=== PATIENT | male | born 1960 | race Caucasian/White ===

== ENCOUNTER 2018-03-24 07:44 | Day surgery (SDC) | payer OTHER ==
[2018-03-17 10:04] LABS: HEMATOCRIT 40.7 % (37.9-51.0); HEMOGLOBIN 14.2 g/dL (13.5-17.0); MEAN CORPUSCULAR HEMOGLOBIN 31.7 pg (27.0-33.4); MEAN CORPUSCULAR VOLUME 91 fl (80-97); PLATELET COUNT 264 10^3/uL (150-450); RED BLOOD COUNT 4.48 10^6/uL (4.35-5.55); RED CELL DISTRIBUTION WIDTH 12.1 % (11.5-14.0); WHITE BLOOD COUNT 6.1 10^3/uL (4.0-10.5)
[2018-03-17 10:28] LABS: ANION GAP 8 (5-19); BLOOD UREA NITROGEN 17 mg/dL (7-20); CALCIUM 9.6 mg/dL (8.4-10.2); CARBON DIOXIDE 29 mmol/L (22-30); CHLORIDE 104 mmol/L (98-107); GLUCOSE 116 mg/dL (75-110); POTASSIUM 5.2 mmol/L (3.6-5.0); SODIUM 141.3 mmol/L (137-145)
--- NOTE | 2018-03-17 20:20 | EKG REPORT ---
SEVERITY:- NORMAL ECG - SINUS RHYTHM : Confirmed by: Linda Whaley 17-Mar-2018 20:19:24
[~2018-03-24 07:44] MED LIST: LACTATED RINGERS 1000 ML IV PRN; LIDOCAINE 0.5% INJ-PF (5 MG/ML) 50 ML SDV SUBCUT PRN
[2018-03-24] MEDS ORDERED: GLYCOPYRROLATE 1 MG/5 ML SYRINGE ONE (09:00)
[2018-03-24] MEDS ORDERED: SUCCINYLCHOLINE CHLORIDE INJ 200 MG/10 ML VIAL ONE (09:00)
[2018-03-24] MEDS ORDERED: LIDOCAINE 2% JELLY 30 ML TUBE ONE (09:32)
[2018-03-24] MEDS ORDERED: BUPIVACAINE INJ/PF LIPOSOME/PF 266 MG/20 ML SDV ONE (09:32)
[2018-03-24] MEDS ORDERED: BACITRACIN ZINC OINTMENT 15 GM ONE (09:32)
[2018-03-24] MEDS ORDERED: KETOROLAC TROMETHAMINE 60 MG/2 ML SDV ONE (10:17)
[2018-03-24] MEDS ORDERED: FENTANYL CITRATE INJ/PF 100 MCG/2 ML AMPUL ONE (10:18)
[2018-03-24] MEDS ORDERED: DEXAMETHASONE SOD PHOSPHATE INJ 4 MG/1 ML VIAL ONE (10:18)
[2018-03-24] MEDS ORDERED: ONDANSETRON HCL INJ/PF 4 MG/2 ML SDV ONE (10:18)
[2018-03-24] MEDS ORDERED: ACETAMINOPHEN 1,000 MG/100 ML RTUPB IV ONE (10:18)
[2018-03-24] MEDS ORDERED: MIDAZOLAM 2 MG/2 ML INJ ONE (10:18)
[2018-03-24] MEDS ORDERED: PROPOFOL INJ 200 MG/20 ML VIAL IV ONE (10:18)
[2018-03-24] MEDS ORDERED: EPHEDRINE SULFATE INJ 50 MG/1 ML AMPULE ONE (10:42)
[2018-03-24] MEDS ORDERED: OXYCODONE-ACETAMINOPHEN 5-325 MG TABLET PO PRN ×2 (11:11)
[2018-03-24] MEDS ORDERED: PROMETHAZINE HCL INJ 25 MG/1 ML VIAL IV PRN ×2 (11:11)
[2018-03-24] MEDS ORDERED: MEPERIDINE HCL/PF INJ 25 MG/1 ML DISP.SYRIN IV PRN (11:11)
[2018-03-24] MEDS ORDERED: DIPHENHYDRAMINE HCL 50 MG/ML VIAL IV PRN (11:11)
[2018-03-24] MEDS ORDERED: MORPHINE SULFATE 10 MG/ML INJ IV PRN (11:11)
[2018-03-24] MEDS ORDERED: ONDANSETRON HCL INJ/PF 4 MG/2 ML SDV IV PRN (11:11)
[2018-03-24] MEDS ORDERED: FENTANYL CITRATE INJ/PF 100 MCG/2 ML AMPUL IV PRN ×3 (11:11)
[2018-03-24] MEDS ORDERED: HYDROCODONE/ACETAMINOPHEN 10-325 MG TABLET ONE (12:28)
[2018-03-24 13:52] VITALS: BP 119/79
--- NOTE | 2018-03-28 14:17 | Discharge Summary ---
Discharge Summary (SDC) - Discharge Final Diagnosis: Internal and external hemorrhoids. Date of Surgery: 03/24/18 Discharge Date: 03/24/18 Condition: Stable Forms: ASU Anesthesia D/C Instruction, Discharge POC-Surgical Service Treatment or Instructions: Soak buttock in warm, soapy water twice daily and after bowel movements. Fiber supplement twice daily. Ibuprofen 800 mg (OTC) 3 times daily with meals. Stool softener, 2 tabs p.o. twice daily. [place] 10/325 mg p.o. every 6 hours as needed pain. 5% lidocaine ointment, apply to rectum 3 times daily. Neosporin ointment (OTC), apply to rectum 3 times daily. Referrals: MIKAL LEDEZMA MD [ACTIVE STAFF] - 04/04/18 9:45 am Respiratory Treatments at Home: Deep Breathing/Coughing Discharge Activity: Balance Activity w/Rest, No Lifting Over 10 Pounds, No Lifting/Push/Pulling, Slowly Increase Activity Home Care Assistance: None Needed Report the Following to Your Physician Immediately: Nausea, Vomiting, Increase in Pain, Fever over 101 Degrees, Unusual Bleeding, Increased Soreness, Drainage- [place], Drainage-Foul Smelling, Large Clots
--- NOTE | 2018-03-28 14:25 | Operative Report ---
Nonrecallable Operative Report DATE OF SURGERY: 03/24/18 PREOPERATIVE DIAGNOSIS: Enlarged, thrombosed internal and external hemorrhoids. POSTOPERATIVE DIAGNOSIS: Enlarged, thrombosed internal and external hemorrhoids. OPERATION: 1. Single column surgical hemorrhoidectomy of the left lateral column. 2. Rubber band ligation of right anterior and right posterior internal hemorrhoids. SURGEON: MIKAL LEDEZMA ANESTHESIA: GA TISSUE REMOVED OR ALTERED: Left lateral hemorrhoid column COMPLICATIONS: None apparent ESTIMATED BLOOD LOSS: Minimal PROCEDURE: Drains/implants: None. Procedure in detail: After informed consent was obtained, the patient was brought into the operating room and laid in the prone jackknife position. The area of the anus and rectum were prepped and draped in a normal sterile fashion. An anal block was created with Exparel. The anoscope was then inserted. The hemorrhoids of the left lateral column were enlarged from the internal to the external position. It was felt that surgical excision would be required. In the right anterior and right posterior positions, only internal hemorrhoids were enlarged. It was felt that rubber band ligation would be adequate for these hemorrhoids. The left lateral column was elevated. It was excised using electrocautery. The resultant defect was closed using 3-0 chromic suture in simple running fashion. Great care was taken to reapproximate mucosa to mucosa, anoderm to anoderm, and skin to skin. Once this was completed, attention was turned to the rubber band ligation. The anoscope was inserted. The right anterior and right posterior columns were examined. Rubber bands were placed around the right anterior and right posterior internal hemorrhoid columns. After this was completed, the anoscope was removed. A dressing was placed. The procedure was at this time concluded. All sponge, instrument, and needle counts were correct x2. Condition: Stable.
== END 2018-03-24 13:35 | disposition home or self-care (01) ==
LOC: OROUT 07:44
PROVIDERS: ATTEND Surgery
DX: K64.4 Residual hemorrhoidal skin tags (principal); K64.8 Other hemorrhoids; R73.03 Prediabetes; E78.00 Pure hypercholesterolemia, unspecified; I25.10 Atherosclerotic heart disease of native coronary artery without angina pectoris; K21.9 Gastro-esophageal reflux disease without esophagitis; I10 Essential (primary) hypertension; Z88.8 Allergy status to other drugs, medicaments and biological substances; Z79.899 Other long term (current) drug therapy; Z79.84 Long term (current) use of oral hypoglycemic drugs; Z79.82 Long term (current) use of aspirin
CPT/HCPCS: 93005; 36415 ×2; 82962; 84132; 85027; 80048; 88304 ×2; 93010; 46999; 46221; J2250; J3490 ×3; J1100; J3010; J0330; J2405; J2704; J0131; C9290; 902; J1885